=== PATIENT | female | born 1985 ===

== ENCOUNTER → 2018-10-30 19:46 | Outpatient (ROUT) | payer SELFPAY ==
[2018-10-30 19:59] LABS: Add Manual Diff / Slide Review NO; Basophils Absolute Auto 0 /uL (0-100); Basophils Percent Auto 0.3 % (0-2); Eosinophils Absolute Auto 100 /uL (0-450); Eosinophils Percent Auto 1.1 % (2-4); Hematocrit 42.2 % (36-46); Hemoglobin 13.5 g/dL (12.0-16.0); Lymphocytes Absolute Auto 3200 /uL (1100-4500); Lymphocytes Percent Auto 32.7 % (25-40); Mean Corpuscular Hemoglobin 27.9 PG (26-34); Mean Corpuscular Volume 87.2 fL (80-100); Monocytes Absolute Auto 700 /uL (0-900); Monocytes Percent Auto 7.1 % (3-14); Neutrophils Absolute Auto 5800 /uL (1500-7000); Neutrophils Percent Auto 58.8 % (50-75); Platelet Count 303 X10^3/uL (150-400); Red Blood Cell Count 4.84 X10^6/uL (4.0-5.2); Red Cell Distribution Width 13.9 % (11.6-14.8); White Blood Cell Count 9.8 X10^3/uL (4.5-11.0)
[2018-10-30 20:21] LABS: HEMOLYSIS < 15 (0-50); Iron 63 ug/dL (37-170)
[2018-10-30 20:23] LABS: Alanine Aminotransferase 39 IU/L (9-52); Albumin 4.7 g/dL (3.5-5.0); Albumin Globulin Ratio 1.4 (1.0-2.8); Alkaline Phosphatase 59 U/L (38-126); Aspartate Aminotransferase 29 IU/L (14-36); Blood Urea Nitrogen 13 mg/dL (7-17); Calcium 9.9 mg/dL (8.4-10.2); Carbon Dioxide 24 mmol/L (22-32); Chloride 102 mmol/L (98-107); Cholesterol 180 mg/dL (140-199); Estimated Glomerular Filt Rate > 60.0 mL/min (>60); Globulin 3.4 g/dL (1.7-4.1); Glucose 90 mg/dL (70-100); HDL Cholesterol 42 mg/dL (40-60); HEMOLYSIS < 15 (0-50); LDL Cholesterol Calculated 85 mg/dL (<100); Sodium 138 mmol/L (137-145); Total Protein 8.1 g/dL (6.3-8.2); Triglycerides 267 mg/dL (35-150)
[2018-10-30 20:27] LABS: Hemoglobin A1C% w Est Avg Glu 5.4 % (4.0-6.0)
[2018-10-30 20:33] LABS: Percent Iron Saturation 15 % (15-50); Total Iron Binding Capacity 418 ug/dL (265-497); Transferrin 327 mg/dL (206-381)
[2018-10-30 20:38] LABS: Free T3, Triiodothyronine Free 4.63 pg/mL (2.77-5.27); Free T4, Direct Thyroxine 1.21 ng/dL (0.78-2.19)
[2018-10-30 20:52] LABS: Thyroid Stimulating Hormone 1.85 uIU/mL (0.47-4.68)
[2018-10-30 21:03] LABS: Bilirubin Total 0.2 mg/dL (0.2-1.3)
== END ==
PROVIDERS: Visit Provider Nurse Practitioner Acute Care
DX: R53.83 Other fatigue (principal); R53.1 Weakness; R42 Dizziness and giddiness; R73.01 Impaired fasting glucose
CPT/HCPCS: 80053; 80061; 83036; 83540; 83550; 84439; 84443; 84481; 85025